=== PATIENT | female | born 1940 | race Asian ===

== ENCOUNTER 2018-09-22 21:15 | Inpatient (IN) | payer MEDICAID ==
--- NOTE | 2018-09-22 21:39 | ED Physician Chart ---
ED Chief Complaint/HPI - Patient Information Date Seen:: 09/22/18 Time Seen:: 21:38 Chief Complaint:: Failure to thrive History of Present Illness:: 77 yo female was brought from [facility] to ER for evaluation of poor oral intake and failure to thrive. Pt refused to eat and had altered mental status for 2 days. Per report, pt had fever for 1 day. Allergies:: Allergies Allergy/AdvReac Type Severity Reaction Status Date / Time No Known Allergies Allergy Verified 09/22/18 21:27 Vitals:: Vital Signs - 8 hr 09/22/18 21:20 Temp 100.5 F HR 116 RR 20 BP 113/82 O2 Sat % 96 ED Review of Systems - Review of Systems General/Constitutional: Fever, Weakness Skin: No bruising Head: No headache Eyes: No pain ENT: No nasal drainage Neck: No neck pain Cardio Vascular: No chest pain Pulmonary: No SOB GI: No nausea, No vomiting Musculoskeletal: No bone or joint pain Hematopoietic: No bruising Neurological: No focal symptoms ED Past Medical History - Past Medical History Past Medical History: HTN, Dyslipidemia (Hyperlipidemia), Other (DYSPHAGIA, AFib ) Social History: Non Smoker, No Alcohol, No Drug Use Family Medical History - Family Member Mother History Unknown: Yes Ethnicity: Non- Hx Family Cancer: No ED Physical Exam - Physical Examination General/Constitutional: Awake Other Gen/Cons comments:: Cachectic Head: Atraumatic Eyes: PERRL Skin: No rash ENMT: External ears, nose nl, Nasal exam nl, Lips, teeth, gums nl Neck: No nuchal rigidity Respiratory: No Wheeze/Rhonchi/Rales Cardio Vascular: RRR, No murmur, gallop, rubs, NL S1 S2 GI: No tenderness/rebounding/guarding Extremities: normal strength in all extremities Neuro/Psych: No focal deficits ED Labs/Radiology/EKG Results - Lab Results Results: Laboratory Last Values WBC 6.6 Th/cmm (4.8-10.8) 09/23/18 04:00 RBC 4.17 Mil/cmm (3.80-5.20) 09/23/18 04:00 Hgb 12.9 gm/dL (12-16) 09/23/18 04:00 Hct 40.6 % (41.0-60) L 09/23/18 04:00 MCV 97.4 fl (81-100) 09/23/18 04:00 MCH 31.0 pg (27.0-31.0) 09/23/18 04:00 MCHC Differential 31.8 pg (28.0-36.0) 09/23/18 04:00 RDW 12.3 % (11.5-20.0) 09/23/18 04:00 Plt Count 167 Th/cmm (150-400) 09/23/18 04:00 MPV 8.8 fl 09/23/18 04:00 Neutrophils % 69.4 % (40.0-80.0) 09/23/18 04:00 Lymphocytes % 19.6 % (20.0-50.0) L 09/23/18 04:00 Monocytes % 10.0 % (2.0-10.0) 09/23/18 04:00 Eosinophils % 0.7 % (0.0-5.0) 09/23/18 04:00 Basophils % 0.3 % (0.0-2.0) 09/23/18 04:00 PT 10.9 SECONDS (9.5-11.5) 09/23/18 04:00 INR 1.05 (0.5-1.4) 09/23/18 04:00 PTT (Actin FS) 28.3 SECONDS (26.0-38.0) 09/23/18 04:00 Sodium 152 mEq/L (136-145) H 09/23/18 04:00 Potassium 3.6 mEq/L (3.5-5.1) 09/23/18 04:00 Chloride 117 mEq/L (98-107) H 09/23/18 04:00 Carbon Dioxide 26.8 mEq/L (21.0-31.0) 09/23/18 04:00 Anion Gap 11.8 (7.0-16.0) 09/23/18 04:00 BUN 23 mg/dL (7-25) 09/23/18 04:00 Creatinine 0.7 mg/dL (0.6-1.2) 09/23/18 04:00 Est GFR ( Amer) TNP 09/23/18 04:00 Est GFR (Non-Af Amer) TNP 09/23/18 04:00 BUN/Creatinine Ratio 32.9 09/23/18 04:00 Glucose 131 mg/dL (70-105) H 09/23/18 04:00 Calcium 8.4 mg/dL (8.6-10.3) L 09/23/18 04:00 Phosphorus 2.5 mg/dL (2.5-5.0) 09/23/18 04:00 Magnesium 2.5 mg/dL (1.9-2.7) 09/23/18 04:00 Total Bilirubin 0.4 mg/dL (0.3-1.0) 09/23/18 04:00 AST 16 U/L (13-39) 09/23/18 04:00 ALT 6 U/L (7-52) L 09/23/18 04:00 Alkaline Phosphatase 42 U/L (34-104) 09/23/18 04:00 Troponin I 0.01 ng/mL (0.01-0.05) 09/22/18 22:03 B-Natriuretic Peptide 88.0 pg/mL (5.0-100.0) 09/22/18 22:03 Total Protein 6.6 gm/dL (6.0-8.3) 09/23/18 04:00 Albumin 3.3 gm/dL (3.7-5.3) L 09/23/18 04:00 Globulin 3.3 gm/dL 09/23/18 04:00 Albumin/Globulin Ratio 1.0 (1.0-1.8) 09/23/18 04:00 TSH 0.42 uIU/ml (0.34-5.60) 09/22/18 22:03 Urine Source CATH 09/22/18 22:51 Urine Color YELLOW 09/22/18 22:51 Urine Clarity HAZY (CLEAR) 09/22/18 22:51 Urine pH 5.5 (4.6 - 8.0) 09/22/18 22:51 Ur Specific [place] >= 1.030 (1.005-1.030) 09/22/18 22:51 Urine Protein TRACE mg/dL (NEGATIVE) 09/22/18 22:51 Urine Glucose (UA) NEGATIVE mg/dL (NEGATIVE) 09/22/18 22:51 Urine Ketones 15 mg/dL (NEGATIVE) H 09/22/18 22:51 Urine Blood MODERATE (NEGATIVE) H 09/22/18 22:51 Urine Nitrate NEGATIVE (NEGATIVE) 09/22/18 22:51 Urine Bilirubin NEGATIVE (NEGATIVE) 09/22/18 22:51 Urine Urobilinogen 0.2 E.U./dL (0.2 - 1.0) 09/22/18 22:51 Ur Leukocyte Esterase NEGATIVE (NEGATIVE) 09/22/18 22:51 Urine RBC 10-25 /hpf (0-5) H 09/22/18 22:51 Urine WBC 2-5 /hpf (0-5) 09/22/18 22:51 Ur Epithelial Cells MODERATE /lpf (FEW) 09/22/18 22:51 Urine Bacteria FEW /hpf (NONE SEEN) 09/22/18 22:51 ED Assessment - Assessment General Assessment: Failure to thrive Dysphagia Hypernatremia Dehydration ED Septic Shock - . Is Septic Shock (SBP<90, OR Lactate>4 mmol\L) present?: No - <6hrs of presentation: Vital Signs: Vital Signs - 8 hr 09/22/18 21:20 Temp 100.5 F HR 116 RR 20 BP 113/82 O2 Sat % 96 ED Reassessment (Disposition) - Reassessment Reassessment Condition:: Unchanged, Improved - Aftercare/Follow up Instructions Notes:: Admit pt under Dr. Balbuena for possible G tube placement - Patient Disposition Discharge/Transfer:: Acute Care w/in this hosp Admitted to:: Telemetry Admitting Medical Physician:: Jovanni Lawrence
[2018-09-22] MEDS ORDERED: guaiFENesin 200 MG/10 ML UDC PO PRN (22:06)
[2018-09-22] MEDS ORDERED: Polyvinyl Alcohol Ophth Soln 15 mL Bottle EACH EYE PRN (22:06)
[2018-09-22] MEDS ORDERED: Magnesium Hydroxide (MOM) 30 mL UDC PO PRN (22:06)
[2018-09-22] MEDS ORDERED: Albuterol Nebulizer 2.5mg/3mL HHN PRN (22:07)
[2018-09-22] MEDS ORDERED: Ipratropium Neb 0.5 mg/2.5 mL UD HHN PRN (22:07)
[2018-09-22 22:15] LABS: % BASOPHILS 0.7 % (0.0-2.0); % EOSINOPHILS 0.6 % (0.0-5.0); % LYMPHOCYTES 17.8 % (20.0-50.0); % MONOCYTES 9.3 % (2.0-10.0); % NEUTROPHILS 71.6 % (40.0-80.0); HEMATOCRIT 42.1 % (41.0-60); HEMOGLOBIN 13.7 gm/dL (12-16); MEAN CELL VOLUME 96.1 fl (81-100); MEAN CORPUSCULAR HEMOGLOBIN 31.3 pg (27.0-31.0); MEAN CORPUSCULAR HGB CONC 32.6 pg (28.0-36.0); MEAN PLATELET VOLUME 8.6 fl; MONOCYTE ABSOLUTE 0.5 Th/cmm (0.3-1.0); PLATELET COUNT 177 Th/cmm (150-400); RED BLOOD COUNT 4.38 Mil/cmm (3.80-5.20); RED CELL DISTRIBUTION WIDTH 12.5 % (11.5-20.0); WHITE BLOOD COUNT 5.5 Th/cmm (4.8-10.8)
[2018-09-22] MEDS ORDERED: D5-0.9%NS 1,000 ML IV SCH (22:15)
[2018-09-22 22:26] LABS: ALB/GLOB RATIO 0.9 (1.0-1.8); ALBUMIN 3.4 gm/dL (3.7-5.3); ALKALINE PHOSPHATASE 46 U/L (34-104); ANION GAP 13.7 (7.0-16.0); BILIRUBIN,TOTAL 0.5 mg/dL (0.3-1.0); BUN - UREA NITROGEN 24 mg/dL (7-25); CALCIUM SERUM 8.7 mg/dL (8.6-10.3); CARBON DIOXIDE 24.9 mEq/L (21.0-31.0); CHLORIDE 113 mEq/L (98-107); CREATININE - SERUM 0.7 mg/dL (0.6-1.2); GLUCOSE 109 mg/dL (70-105); POTASSIUM SERUM 3.6 mEq/L (3.5-5.1); SGOT 15 U/L (13-39); SGPT/ALT 6 U/L (7-52); SODIUM SERUM 148 mEq/L (136-145)
[2018-09-22 22:56] LABS: URINE SOURCE CATH
[2018-09-22 23:03] LABS: URINE BILIRUBIN NEGATIVE (NEGATIVE); URINE BLOOD MODERATE (NEGATIVE); URINE GLUCOSE (UA) NEGATIVE (NEGATIVE); URINE KETONE 15 mg/dL (NEGATIVE); URINE LEUKOCYTE ESTERASE NEGATIVE (NEGATIVE); URINE MICROSCOPIC INDICATED? YES; URINE NITRATE NEGATIVE (NEGATIVE); URINE PH 5.5 (4.6 - 8.0); URINE PROTEIN TRACE mg/dL (NEGATIVE); URINE UROBILINOGEN 0.2 E.U./dL (0.2 - 1.0)
[2018-09-22 23:04] LABS: URINE CLARITY HAZY (CLEAR); URINE COLOR YELLOW
[2018-09-22 23:09] LABS: URINE EPITHELIAL CELLS MODERATE /lpf (FEW)
[2018-09-22 23:10] LABS: URINE BACTERIA FEW /hpf (NONE SEEN)
[2018-09-22] MEDS ORDERED: Diltiazem 5 mg/mL 25mL Vial IV PRN (23:48)
[2018-09-23] MEDS ORDERED: Diltiazem 5 mg/mL 5mL Vial IVP ONE ×2 (00:17→10:25)
[2018-09-23 01:28] VITALS: BP 133/68
[2018-09-23 04:17] LABS: MONOCYTE ABSOLUTE 0.7 Th/cmm (0.3-1.0); RED CELL DISTRIBUTION WIDTH 12.3 % (11.5-20.0); WHITE BLOOD COUNT 6.6 Th/cmm (4.8-10.8)
[2018-09-23 04:41] LABS: % BASOPHILS 0.3 % (0.0-2.0); % EOSINOPHILS 0.7 % (0.0-5.0); % LYMPHOCYTES 19.6 % (20.0-50.0); % NEUTROPHILS 69.4 % (40.0-80.0); HEMATOCRIT 40.6 % (41.0-60); HEMOGLOBIN 12.9 gm/dL (12-16); LYMPHOCYTE ABSOLUTE 1.3 Th/cmm (1.5-3.0); MEAN CELL VOLUME 97.4 fl (81-100); MEAN CORPUSCULAR HGB CONC 31.8 pg (28.0-36.0); MEAN PLATELET VOLUME 8.8 fl; NEUTROPHILE ABSOLUTE 4.6 Th/cmm (1.8-8.0); PLATELET COUNT 167 Th/cmm (150-400); RED BLOOD COUNT 4.17 Mil/cmm (3.80-5.20)
[2018-09-23 04:59] LABS: INR 1.05 (0.5-1.4); PROTHROMBIN TIME (TEST) 10.9 SECONDS (9.5-11.5)
[2018-09-23 05:11] LABS: ALBUMIN 3.3 gm/dL (3.7-5.3); ALKALINE PHOSPHATASE 42 U/L (34-104); ANION GAP 11.8 (7.0-16.0); BILIRUBIN,TOTAL 0.4 mg/dL (0.3-1.0); BUN - UREA NITROGEN 23 mg/dL (7-25); CALCIUM SERUM 8.4 mg/dL (8.6-10.3); CARBON DIOXIDE 26.8 mEq/L (21.0-31.0); CHLORIDE 117 mEq/L (98-107); CREATININE - SERUM 0.7 mg/dL (0.6-1.2); GLUCOSE 131 mg/dL (70-105); MAGNESIUM 2.5 mg/dL (1.9-2.7); PHOSPHOROUS 2.5 mg/dL (2.5-5.0); POTASSIUM SERUM 3.6 mEq/L (3.5-5.1); SGOT 16 U/L (13-39); SGPT/ALT 6 U/L (7-52); SODIUM SERUM 152 mEq/L (136-145); TOTAL PROTEIN,SERUM 6.6 gm/dL (6.0-8.3)
--- NOTE | 2018-09-23 08:19 | Diagnostic Imaging Report ---
Chest x-ray single view History: Shortness of breath Comparison: None The heart size is normal. No focal pulmonary parenchymal processes. No hilar or mediastinal abnormalities. Impression: No acute abnormalities
--- NOTE | 2018-09-23 08:33 | Diagnostic Imaging Report ---
Exam: Chest x-ray HISTORY shortness of breath COMPARISON: 2018 Findings: Frontal examination of chest reviewed demonstrates COPD changes. No active pulmonic infiltrates or effusions are noted. Mediastinal structures midline, bony thorax is intact IMPRESSION: COPD changes no acute disease.
[2018-09-23] MEDS ORDERED: Non-Formulary Item 1 EA (Nutritional Supplement [Resource 2.0] 60 ML) PO SCH (09:00)
[2018-09-23] MEDS ORDERED: NUTRITIONAL SUPPLEMENT PO SCH (09:00)
--- NOTE | 2018-09-23 09:43 | Diagnostic Imaging Report ---
CHEST X-RAY: AP view INDICATION: NG tube placement COMPARISON: 09/23/2018 at 7:29 AM FINDINGS: NG tube is in place with tip in the stomach. There is no focal consolidation or pleural effusions The heart is normal in size. IMPRESSION: NG tube within the stomach No focal consolidation identified.
[2018-09-23] MEDS: Multivitamin Tab PO SCH (10:10)
[2018-09-23] MEDS ORDERED: Diltiazem 5 mg/mL 5mL Vial IVP PRN (10:45)
--- NOTE | 2018-09-23 14:11 | Internal Medicine Prog Note ---
Internal Medicine Subjective - Subjective Service Date: 09/23/18 ([id number] [facility]) Internal Medicine Objective - Results Result Diagrams: 09/23/18 04:00 09/23/18 04:00 Recent Labs: Laboratory Last Values WBC 6.6 Th/cmm (4.8-10.8) 09/23/18 04:00 RBC 4.17 Mil/cmm (3.80-5.20) 09/23/18 04:00 Hgb 12.9 gm/dL (12-16) 09/23/18 04:00 Hct 40.6 % (41.0-60) L 09/23/18 04:00 MCV 97.4 fl (81-100) 09/23/18 04:00 MCH 31.0 pg (27.0-31.0) 09/23/18 04:00 MCHC Differential 31.8 pg (28.0-36.0) 09/23/18 04:00 RDW 12.3 % (11.5-20.0) 09/23/18 04:00 Plt Count 167 Th/cmm (150-400) 09/23/18 04:00 MPV 8.8 fl 09/23/18 04:00 Neutrophils % 69.4 % (40.0-80.0) 09/23/18 04:00 Lymphocytes % 19.6 % (20.0-50.0) L 09/23/18 04:00 Monocytes % 10.0 % (2.0-10.0) 09/23/18 04:00 Eosinophils % 0.7 % (0.0-5.0) 09/23/18 04:00 Basophils % 0.3 % (0.0-2.0) 09/23/18 04:00 PT 10.9 SECONDS (9.5-11.5) 09/23/18 04:00 INR 1.05 (0.5-1.4) 09/23/18 04:00 PTT (Actin FS) 28.3 SECONDS (26.0-38.0) 09/23/18 04:00 Sodium 152 mEq/L (136-145) H 09/23/18 04:00 Potassium 3.6 mEq/L (3.5-5.1) 09/23/18 04:00 Chloride 117 mEq/L (98-107) H 09/23/18 04:00 Carbon Dioxide 26.8 mEq/L (21.0-31.0) 09/23/18 04:00 Anion Gap 11.8 (7.0-16.0) 09/23/18 04:00 BUN 23 mg/dL (7-25) 09/23/18 04:00 Creatinine 0.7 mg/dL (0.6-1.2) 09/23/18 04:00 Est GFR ( Amer) TNP 09/23/18 04:00 Est GFR (Non-Af Amer) TNP 09/23/18 04:00 BUN/Creatinine Ratio 32.9 09/23/18 04:00 Glucose 131 mg/dL (70-105) H 09/23/18 04:00 Calcium 8.4 mg/dL (8.6-10.3) L 09/23/18 04:00 Phosphorus 2.5 mg/dL (2.5-5.0) 09/23/18 04:00 Magnesium 2.5 mg/dL (1.9-2.7) 09/23/18 04:00 Total Bilirubin 0.4 mg/dL (0.3-1.0) 09/23/18 04:00 AST 16 U/L (13-39) 09/23/18 04:00 ALT 6 U/L (7-52) L 09/23/18 04:00 Alkaline Phosphatase 42 U/L (34-104) 09/23/18 04:00 Troponin I 0.01 ng/mL (0.01-0.05) 09/22/18 22:03 B-Natriuretic Peptide 88.0 pg/mL (5.0-100.0) 09/22/18 22:03 Total Protein 6.6 gm/dL (6.0-8.3) 09/23/18 04:00 Albumin 3.3 gm/dL (3.7-5.3) L 09/23/18 04:00 Globulin 3.3 gm/dL 09/23/18 04:00 Albumin/Globulin Ratio 1.0 (1.0-1.8) 09/23/18 04:00 TSH 0.42 uIU/ml (0.34-5.60) 09/22/18 22:03 Urine Source CATH 09/22/18 22:51 Urine Color YELLOW 09/22/18 22:51 Urine Clarity HAZY (CLEAR) 09/22/18 22:51 Urine pH 5.5 (4.6 - 8.0) 09/22/18 22:51 Ur Specific [place] >= 1.030 (1.005-1.030) 09/22/18 22:51 Urine Protein TRACE mg/dL (NEGATIVE) 09/22/18 22:51 Urine Glucose (UA) NEGATIVE mg/dL (NEGATIVE) 09/22/18 22:51 Urine Ketones 15 mg/dL (NEGATIVE) H 09/22/18 22:51 Urine Blood MODERATE (NEGATIVE) H 09/22/18 22:51 Urine Nitrate NEGATIVE (NEGATIVE) 09/22/18 22:51 Urine Bilirubin NEGATIVE (NEGATIVE) 09/22/18 22:51 Urine Urobilinogen 0.2 E.U./dL (0.2 - 1.0) 09/22/18 22:51 Ur Leukocyte Esterase NEGATIVE (NEGATIVE) 09/22/18 22:51 Urine RBC 10-25 /hpf (0-5) H 09/22/18 22:51 Urine WBC 2-5 /hpf (0-5) 09/22/18 22:51 Ur Epithelial Cells MODERATE /lpf (FEW) 09/22/18 22:51 Urine Bacteria FEW /hpf (NONE SEEN) 09/22/18 22:51 - Physical Exam Vitals and I&O: Vital Signs Temp 98.2 F 09/23/18 08:00 Pulse 75 09/23/18 11:40 Resp 25 09/23/18 10:00 BP 113/62 09/23/18 10:10 Pulse Ox 94 09/23/18 10:00 Intake & Output 09/22/18 09/23/18 09/23/18 18:59 06:59 18:59 Intake Total 586.667 Balance 586.667 Weight (lbs) 83 lb Intake: Intake, IV Amount 586.667 D5-0.9%Ns 1,000 ml @ 80 586.667 mls/hr IV .[id number] [facility] Rx #:[id number] Oral 0 Other: # Voids 1 # Bowel Movements 0 Weight Source Bedscale Active Medications: Current Medications Acetaminophen (Tylenol) 650 mg PO Q4H PRN PRN Reason: Pain Or Fever above 101 Stop: 11/21/18 22:06 Albuterol Sulfate (Albuterol 2.5mg/3ml Neb Ud) 2.5 mg HHN Q2HRT PRN PRN Reason: Shortness of Breath or Wheeze Stop: 11/21/18 22:06 Last Admin: 09/23/18 00:12 Dose: 2.5 mg Artificial Tears (Artificial Tears Ophth Soln) 1 drop EACH EYE Q6HR PRN PRN Reason: Dry Eye Stop: 10/23/18 22:05 Last Admin: 09/23/18 10:11 Dose: 1 drop Diltiazem HCl (Cardizem) 10 mg IVP Q4HR PRN PRN Reason: Tachycardia HR Above 120 Stop: 11/22/18 00:00 Last Admin: 09/23/18 10:40 Dose: 10 mg Docusate Sodium (Colace) 100 mg PO BID [facility] Stop: 11/22/18 08:59 Last Admin: 09/23/18 10:10 Dose: 100 mg Donepezil HCl (Aricept) 5 mg PO HS [facility] Stop: 11/22/18 20:59 Guaifenesin (Robitussin) 200 mg PO Q6HR PRN PRN Reason: Cough Stop: 11/21/18 22:05 Dextrose (D5w) 1,000 mls @ 75 mls/hr IV .[id number] [facility] Stop: 11/22/18 12:30 Ipratropium [place] (Atrovent Neb 0.5mg/2.5ml) 0.5 mg HHN Q2HRT PRN PRN Reason: Shortness of Breath or Wheeze Stop: 11/21/18 22:06 Magnesium Hydroxide (Milk Of Magnesia) 30 ml PO HS PRN PRN Reason: Constipation Stop: 11/21/18 22:05 Metoprolol Succinate (Toprol Xl) 25 mg PO BID [facility] Stop: 11/22/18 08:59 Last Admin: 09/23/18 10:10 Dose: 25 mg Multivitamins/Vitamin C (Theragran) 1 tab PO DAILY [facility] Stop: 11/22/18 08:59 Last Admin: 09/23/18 10:10 Dose: 1 tab Ondansetron HCl (Zofran) 4 mg IV Q8H PRN PRN Reason: Nausea / Vomiting Stop: 11/21/18 22:06
--- NOTE | 2018-09-23 16:28 | History & Physical ---
ADMIT DATE: 09/23/2018 CHIEF COMPLAINT: Failure to thrive. HISTORY OF PRESENT ILLNESS: This is a 77-year-old female who is a [facility] resident, admitted to the ICU unit due to 2-day history of altered mental status associated with poor oral intake. The patient did have an episode of a fever at the [facility]. PAST MEDICAL HISTORY: Hypertension, dyslipidemia, dysphagia, and history of atrial fibrillation. SOCIAL HISTORY: The patient is a [facility] resident requiring 24-hour nursing care. FAMILY HISTORY: Noncontributory. REVIEW OF SYSTEMS: Unable to obtain due to patient's mental status. PHYSICAL EXAMINATION: GENERAL: Elderly female, awake, not interactive. NG tube in place, in no apparent distress. VITAL SIGNS: Temperature 98.2, heart rate 120, blood pressure 112/81, respirations 27, O2 of 97%. HEENT: Head normocephalic, atraumatic. NECK: Supple. No mass. LUNGS: Clear bilaterally. HEART: Regular rhythm. ABDOMEN: Soft, nontender, nondistended. EXTREMITIES: No edema noted. LABORATORY DATA: WBC 6.6, H and H of 12.9 and 40.6, platelets 167. Sodium 152, potassium 3.6, chloride 117, BUN 22, creatinine 0.7. The patient had a urinalysis done positive for UTI. DIAGNOSTICS: The patient had a chest x-ray done and impression is no focal consolidation identified. ASSESSMENT: Failure to thrive, dysphagia, atrial fibrillation with rapid ventricular response, hypertension, hyperlipidemia, hypernatremia secondary to acute dehydration, acute urinary tract infection, moderate protein calorie malnutrition. PLAN: The patient to be admitted to the ICU unit. We will give IV fluids for hydration. NG tube for nutritional support. We will get GI consultation for possible PEG. Get Cardiology consultation as well. We will get followup labs. We will send urine for culture. We will give the patient empiric IV antibiotics. We will continue to monitor this patient. JOB# [id number]
[2018-09-23] MEDS: Levofloxacin 500mg/100mL 500 MG/100 ML BAG IV SCH (17:02)
[2018-09-23] MEDS: Dextrose 5% 1,000 ML IV SCH (17:02)
[2018-09-23] MEDS: Diltiazem 30 mg Tab PO SCH (17:03)
[2018-09-24] MEDS: Diltiazem 30 mg Tab PO SCH ×4 (00:55→21:03)
--- NOTE | 2018-09-24 04:50 | Consultation ---
DATE OF CONSULTATION: 09/23/2018 INPATIENT GI CONSULTATION CONSULTING PHYSICIAN: Dr. Lawrence. REASON FOR CONSULTATION: Failure to thrive, G-tube placement. HISTORY OF PRESENT ILLNESS: The patient is a 77-year-old female with history of previous G-tube placement, admitted to the hospital with lack of appetite, failure to thrive type symptoms from home. The patient is unable to give any history at the current time and the ER charting is essentially blank and thus the history is extremely limited. Apparently, the patient's daughter is coming in today and can provide some collateral information, but from what I have been told the patient has not been eating and has no appetite for the past week. She has a scar from an old G-tube and that she likely has had symptoms such as this before, but possibly has regained function at that point. A quick analysis has been done with urinalysis and chest x-ray, which failed to show any acute infection. At the current time, the patient is responsive to painful stimuli, but otherwise is noncommunicative. No sign of any GI bleed. PAST MEDICAL HISTORY: Unknown. PAST SURGICAL HISTORY: Significant for previous G-tube placement, otherwise unknown. FAMILY HISTORY: Noncontributory. SOCIAL HISTORY: Unknown. ALLERGIES: There are no known drug allergies. REVIEW OF SYSTEMS: Not possible given the patient is unable to participate in the interview. CURRENT MEDICATIONS: Include Tylenol, albuterol, artificial tears, IV fluid, Cardizem, Colace, Aricept, Robitussin, Atrovent, milk of magnesia, metoprolol, Zofran. PHYSICAL EXAMINATION: VITAL SIGNS: Blood pressure is 94/60, pulse 115 beats per minute, temperature is not recorded, oxygenation 98%. GENERAL: The patient is lying on her back. She is alert and oriented x 0, does not appear to be in acute distress. HEAD, EYES, EARS, NOSE AND THROAT: Normocephalic, atraumatic appearing head. Pupils are equal and reactive to light. Extraocular muscles are intact. She does not track. Dry mucous membranes. NECK: Supple. No JVD or thyromegaly. CHEST: Crackles at the bases. CARDIOVASCULAR: S1, S2 are present, tachycardic. ABDOMEN: Soft. There is a scar from the previous G-tube site. No guarding or rebound. EXTREMITIES: Venous stasis changes bilaterally. Pulses not present. SKIN: There is no obvious jaundice. LABORATORY AND DIAGNOSTIC DATA: White blood cell count of 6.6, hemoglobin 12.9, platelet count 167. INR is 1.05. Sodium 152, BUN 23, creatinine 0.7, AST 16, and ALT 6. Chest x-ray was performed in the ER, it shows no acute abnormality. IMPRESSION: This is a 77-year-old female with history of dysphagia in the past, otherwise unknown medical history, admitted to the hospital for lack of appetite and failure to thrive. 1. Failure to thrive, anorexia. 2. Hypernatremia. DISCUSSION: At this point, the history is extremely limited other than the fact that the patient has not been eating for the past week. She does appear to be dehydrated and thus she likely has not been taking in much hydration via oral route. She has needed a G-tube in the past as evidenced by a scar in her abdomen and thus she may be suffering a recurrent episode of anorexia. For the time being, we can place an NG tube for medications, tube feeding and water and we can ask the patient's daughter if she would like another gastrostomy tube to be placed endoscopically. RECOMMENDATIONS: 1. Insert NG tube and start tube feeds and can use this also for medications and water flushes. 2. If the patient's daughter would like another G-tube placed, we can do this maybe tomorrow or the next day. 3. She likely needs IV fluid given the hypernatremia and we will leave this management as per primary. 4. Try to obtain more collateral information about the patient's past medical history as the ER documentation is essentially useless. Thank you for allowing me to participate in this patient's care. Please call me with any further questions. JOB# [id number]
[2018-09-24 06:19] LABS: % BASOPHILS 0.2 % (0.0-2.0); % EOSINOPHILS 2.5 % (0.0-5.0); % MONOCYTES 8.5 % (2.0-10.0); % NEUTROPHILS 58.8 % (40.0-80.0); EOSINOPHILE ABSOLUTE 0.1 Th/cmm (0.1-0.4); HEMOGLOBIN 12.2 gm/dL (12-16); LYMPHOCYTE ABSOLUTE 1.7 Th/cmm (1.5-3.0); MEAN CELL VOLUME 96.2 fl (81-100); MEAN CORPUSCULAR HEMOGLOBIN 31.9 pg (27.0-31.0); MEAN CORPUSCULAR HGB CONC 33.1 pg (28.0-36.0); MEAN PLATELET VOLUME 8.1 fl; MONOCYTE ABSOLUTE 0.5 Th/cmm (0.3-1.0); NEUTROPHILE ABSOLUTE 3.4 Th/cmm (1.8-8.0); PLATELET COUNT 143 Th/cmm (150-400); RED BLOOD COUNT 3.84 Mil/cmm (3.80-5.20); RED CELL DISTRIBUTION WIDTH 11.9 % (11.5-20.0); WHITE BLOOD COUNT 5.7 Th/cmm (4.8-10.8)
[2018-09-24 07:59] LABS: INR 1.14 (0.5-1.4); PROTHROMBIN TIME (TEST) 11.8 SECONDS (9.5-11.5)
[2018-09-24] MEDS ORDERED: ceFAZolin 1 GM in Sodium Chloride 0.9% 50 ML IV ONE (08:00)
--- NOTE | 2018-09-24 08:03 | Consultation ---
DATE OF CONSULTATION: 09/23/2018 PATIENT OF: Dr. Lawrence. HISTORY OF PRESENT ILLNESS: This is a 77-year-old female patient. Due to failure to thrive, patient stopped eating. At this time, the patient was brought to the Emergency Room for possible PEG placement. The patient was found to have atrial fibrillation with uncontrolled ventricular response and hence, the patient is admitted to ICU. Cardiology consult is requested. PAST MEDICAL HISTORY: Atrial fibrillation, dysphagia, hypertension, hyperlipidemia, osteoporosis, protein-calorie malnutrition. FAMILY HISTORY: Unremarkable. SOCIAL HISTORY: No history of smoking, alcohol abuse. ALLERGIES: No known allergies. PHYSICAL EXAMINATION: VITAL SIGNS: Blood pressure 130/80, pulse 120, irregular, respirations 28. HEAD: Normocephalic. No lumps or bumps. EYES: Pupils equal, reactive to light. Fundi show AV nicking, sclerae white, conjunctivae pink. NECK: Carotid 2+. Normal upstroke. JVD flat. Thyroid not palpable. Lymph nodes not palpable. CHEST: Shows increased AP diameter. No kyphosis, scoliosis. LUNGS: Bilateral bronchovesicular breath sounds. Bilateral wheezing, rhonchi, prolonged expiration. HEART: PMI fifth intercostal space with lateral to midclavicular line. S1, S2, S3, S4. S1 irregular. Systolic murmur. ABDOMEN: Soft. Liver, spleen not palpable. No organomegaly. Bowel sounds active. NEUROLOGIC: Unremarkable. EXTREMITIES: Peripheral pulses 2+. No pedal edema. CLINICAL IMPRESSION: 1. Atrial fibrillation with uncontrolled ventricular response. 2. Dysphagia. 3. Protein-calorie malnutrition. 4. Hypertension. 5. Hyperlipidemia. 6. Osteoporosis. PLAN: The patient to be admitted, control the heart rate. Following this, possible patient to have PEG placement. We will also get an echocardiogram. JOB# [id number]
[2018-09-24 08:33] LABS: ALBUMIN 2.8 gm/dL (3.7-5.3); ALKALINE PHOSPHATASE 38 U/L (34-104); ANION GAP 9.7 (7.0-16.0); BILIRUBIN,TOTAL 0.5 mg/dL (0.3-1.0); BUN - UREA NITROGEN 18 mg/dL (7-25); CALCIUM SERUM 7.9 mg/dL (8.6-10.3); CARBON DIOXIDE 25.1 mEq/L (21.0-31.0); CHLORIDE 109 mEq/L (98-107); CREATININE - SERUM 0.5 mg/dL (0.6-1.2); GLUCOSE 102 mg/dL (70-105); MAGNESIUM 2.3 mg/dL (1.9-2.7); SGOT 18 U/L (13-39); SGPT/ALT 6 U/L (7-52); SODIUM SERUM 141 mEq/L (136-145); TOTAL PROTEIN,SERUM 5.6 gm/dL (6.0-8.3)
[2018-09-24 08:47] LABS: POTASSIUM SERUM 2.8 mEq/L (3.5-5.1)
[2018-09-24] MEDS: KCL 20mEq/100mL Premix 20 MEQ/100 ML PIGGYBACK IV SCH ×2 (11:58→13:38)
[2018-09-24] MEDS: Dextrose 5% 1,000 ML IV SCH (12:02)
--- NOTE | 2018-09-24 12:21 | General Progress Note ---
Subjective - Review of Systems Service Date: 09/24/18 Subjective: Patient has slight shortness of breath no palpitations ejection transferred to PHILLY Objective - Results Result Diagrams: 09/24/18 06:00 09/24/18 06:00 Recent Labs: Laboratory Last Values WBC 5.7 Th/cmm (4.8-10.8) 09/24/18 06:00 RBC 3.84 Mil/cmm (3.80-5.20) 09/24/18 06:00 Hgb 12.2 gm/dL (12-16) 09/24/18 06:00 Hct 37.0 % (41.0-60) L 09/24/18 06:00 MCV 96.2 fl (81-100) 09/24/18 06:00 MCH 31.9 pg (27.0-31.0) H 09/24/18 06:00 MCHC Differential 33.1 pg (28.0-36.0) 09/24/18 06:00 RDW 11.9 % (11.5-20.0) 09/24/18 06:00 Plt Count 143 Th/cmm (150-400) L 09/24/18 06:00 MPV 8.1 fl 09/24/18 06:00 Neutrophils % 58.8 % (40.0-80.0) 09/24/18 06:00 Lymphocytes % 30.0 % (20.0-50.0) 09/24/18 06:00 Monocytes % 8.5 % (2.0-10.0) 09/24/18 06:00 Eosinophils % 2.5 % (0.0-5.0) 09/24/18 06:00 Basophils % 0.2 % (0.0-2.0) 09/24/18 06:00 PT 11.8 SECONDS (9.5-11.5) H 09/24/18 06:00 INR 1.14 (0.5-1.4) 09/24/18 06:00 PTT (Actin FS) 28.3 SECONDS (26.0-38.0) 09/23/18 04:00 Sodium 141 mEq/L (136-145) 09/24/18 06:00 Potassium 2.8 mEq/L (3.5-5.1) L* 09/24/18 06:00 Chloride 109 mEq/L (98-107) H 09/24/18 06:00 Carbon Dioxide 25.1 mEq/L (21.0-31.0) 09/24/18 06:00 Anion Gap 9.7 (7.0-16.0) 09/24/18 06:00 BUN 18 mg/dL (7-25) 09/24/18 06:00 Creatinine 0.5 mg/dL (0.6-1.2) L 09/24/18 06:00 Est GFR ( Amer) TNP 09/24/18 06:00 Est GFR (Non-Af Amer) TNP 09/24/18 06:00 BUN/Creatinine Ratio 36.0 09/24/18 06:00 Glucose 102 mg/dL (70-105) 09/24/18 06:00 POC Glucose 96 MG/DL (70 - 105) 09/24/18 07:01 Calcium 7.9 mg/dL (8.6-10.3) L 09/24/18 06:00 Phosphorus 2.5 mg/dL (2.5-5.0) 09/23/18 04:00 Magnesium 2.3 mg/dL (1.9-2.7) 09/24/18 06:00 Total Bilirubin 0.5 mg/dL (0.3-1.0) 09/24/18 06:00 AST 18 U/L (13-39) 09/24/18 06:00 ALT 6 U/L (7-52) L 09/24/18 06:00 Alkaline Phosphatase 38 U/L (34-104) 09/24/18 06:00 Troponin I 0.01 ng/mL (0.01-0.05) 09/22/18 22:03 B-Natriuretic Peptide 52.0 pg/mL (5.0-100.0) 09/24/18 06:00 Total Protein 5.6 gm/dL (6.0-8.3) L 09/24/18 06:00 Albumin 2.8 gm/dL (3.7-5.3) L 09/24/18 06:00 Globulin 2.8 gm/dL 09/24/18 06:00 Albumin/Globulin Ratio 1.0 (1.0-1.8) 09/24/18 06:00 TSH 0.42 uIU/ml (0.34-5.60) 09/22/18 22:03 Urine Source CATH 09/22/18 22:51 Urine Color YELLOW 09/22/18 22:51 Urine Clarity HAZY (CLEAR) 09/22/18 22:51 Urine pH 5.5 (4.6 - 8.0) 09/22/18 22:51 Ur Specific [place] >= 1.030 (1.005-1.030) 09/22/18 22:51 Urine Protein TRACE mg/dL (NEGATIVE) 09/22/18 22:51 Urine Glucose (UA) NEGATIVE mg/dL (NEGATIVE) 09/22/18 22:51 Urine Ketones 15 mg/dL (NEGATIVE) H 09/22/18 22:51 Urine Blood MODERATE (NEGATIVE) H 09/22/18 22:51 Urine Nitrate NEGATIVE (NEGATIVE) 09/22/18 22:51 Urine Bilirubin NEGATIVE (NEGATIVE) 09/22/18 22:51 Urine Urobilinogen 0.2 E.U./dL (0.2 - 1.0) 09/22/18 22:51 Ur Leukocyte Esterase NEGATIVE (NEGATIVE) 09/22/18 22:51 Urine RBC 10-25 /hpf (0-5) H 09/22/18 22:51 Urine WBC 2-5 /hpf (0-5) 09/22/18 22:51 Ur Epithelial Cells MODERATE /lpf (FEW) 09/22/18 22:51 Urine Bacteria FEW /hpf (NONE SEEN) 09/22/18 22:51 - Physical Exam Vitals and I&O: Vital Signs Temp 96.8 F 09/24/18 12:01 Pulse 105 09/24/18 12:01 Resp 18 09/24/18 12:01 BP 101/77 09/24/18 12:01 Pulse Ox 98 09/24/18 12:01 Intake & Output 09/23/18 09/24/18 09/24/18 18:59 06:59 18:59 Intake Total 540 1245.0 50 Balance 540 1245.0 50 Weight (lbs) 37.648 kg 37.648 kg Intake: Intake, IV Amount 1000.0 50 Dextrose 5% 1,000 ml @ 75 1000.0 mls/hr IV .[id number] [facility] Rx#:[id number] ceFAZolin 1 gm In Sodium 50 Chloride 0.9% 50 ml @ 100 mls/hr IV X1 ONE Rx#: [id number] Oral 0 Tube Feeding 140 245 Other 400 Other: # Voids 2 2 # Bowel Movements 1 1 Stool Characteristics Liquid Brown Weight Source Bedscale Bedscale Active Medications: Current Medications Acetaminophen (Tylenol) 650 mg PO Q4H PRN PRN Reason: Pain Or Fever above 101 Stop: 11/21/18 22:06 Last Admin: 09/23/18 17:08 Dose: 650 mg Albuterol Sulfate (Albuterol 2.5mg/3ml Neb Ud) 2.5 mg HHN Q2HRT PRN PRN Reason: Shortness of Breath or Wheeze Stop: 11/21/18 22:06 Last Admin: 09/23/18 00:12 Dose: 2.5 mg Artificial Tears (Artificial Tears Ophth Soln) 1 drop EACH EYE Q6HR PRN PRN Reason: Dry Eye Stop: 10/23/18 22:05 Last Admin: 09/23/18 10:11 Dose: 1 drop Diltiazem HCl (Cardizem) 10 mg IVP Q4HR PRN PRN Reason: Tachycardia HR Above 120 Stop: 11/22/18 00:00 Last Admin: 09/23/18 10:40 Dose: 10 mg Diltiazem HCl (Cardizem) 60 mg PO Q6HR [facility] Stop: 11/22/18 17:59 Last Admin: 09/24/18 06:01 Dose: Not Given Docusate Sodium (Colace) 100 mg PO BID [facility] Stop: 11/22/18 08:59 Last Admin: 09/24/18 09:53 Dose: Not Given Donepezil HCl (Aricept) 5 mg PO HS [facility] Stop: 11/22/18 20:59 Last Admin: 09/23/18 21:23 Dose: 5 mg Guaifenesin (Robitussin) 200 mg PO Q6HR PRN PRN Reason: Cough Stop: 11/21/18 22:05 Dextrose (D5w) 1,000 mls @ 75 mls/hr IV .[id number] [facility] Stop: 11/22/18 12:30 Last Admin: 09/24/18 12:02 Dose: 75 mls/hr Levofloxacin (Levaquin Pb) 500 mg in 100 mls @ 100 mls/hr IV Q24HR [facility] Stop: 11/22/18 14:59 Last Admin: 09/23/18 17:02 Dose: 100 mls/hr Potassium Chloride (Potassium Chloride) 20 meq in 100 mls @ 50 mls/hr IV Q2H [facility] Stop: 09/24/18 15:14 Last Admin: 09/24/18 11:58 Dose: 50 mls/hr Ipratropium [place] (Atrovent Neb 0.5mg/2.5ml) 0.5 mg HHN Q2HRT PRN PRN Reason: Shortness of Breath or Wheeze Stop: 11/21/18 22:06 Magnesium Hydroxide (Milk Of Magnesia) 30 ml PO HS PRN PRN Reason: Constipation Stop: 11/21/18 22:05 Metoprolol Succinate (Toprol Xl) 25 mg PO BID [facility] Stop: 11/22/18 08:59 Last Admin: 09/23/18 17:03 Dose: Not Given Multivitamins/Vitamin C (Theragran) 1 tab PO DAILY [facility] Stop: 11/22/18 08:59 Last Admin: 09/23/18 10:10 Dose: 1 tab Ondansetron HCl (Zofran) 4 mg IV Q8H PRN PRN Reason: Nausea / Vomiting Stop: 11/21/18 22:06 General: Alert, Mild distress HEENT: Mucous membr. moist/pink Neck: Supple, JVD (flat), +2 carotid pulse wo bruit Cardiovascular: Systolic murmurs, Other (atrial fibrillation) Abdomen: Bowel sounds, Soft Neurological: Normal speech, Normal tone, Cranial nerves 3-12 NL, Reflexes 2+ Assessment/Plan - Assessment Assessment: Atrial fibrillation with rapid ventricular response Dysphagia protein calorie malnutrition Hypertension Hyperlipidemia Osteoporosis GT (insertion - Plan Plan: Continue present management control atrial fibrillation hypertension and nutrition Patient started medication through the G-tube Nutritional Asmnt/Malnutr-PDOC - Dietary Evaluation Malnutrition Findings (Please click <Entered> for more info): Nutritional Asmnt/Malnutrition Start: 09/23/18 11: 10 Text: Status: Complete Freq: Protocol: Document 09/23/18 14:24 LCHENG (Rec: 09/23/18 14:38 [email or web address] [email or web address]) Nutritional Asmnt/Malnutrition Patient General Information Nutritional Screening High Risk Consult Diagnosis FTT, afib w/RVR Pertinent Medical Hx/Surgical Hx HTN, dyslipidemia, dysphagia, afib Subjective Information Consult received for GT feeding. Pt had NG tube inserted today and GI doctor ordered to start TF. Current Diet Order/ Nutrition Support NPO Pertinent Medications D5W, colace, lasix, levaquin, theragran Pertinent Labs 09/23 Na 152, Cl 117, Glucose 131, Ca 8.4, Alb 3.3 09/22 Na 148, Cl 113, Glucose 109, Alb 3.4 Nutritional Hx/Data Height 1.52 m Height (Calculated Centimeters) 152.4 Current Weight (lbs) 37.648 kg Weight (Calculated Kilograms) 37.6 Weight (Calculated Grams) 99227.2 [place] Body Weight 100 Body Mass Index (BMI) 16.2 Weight Status Underweight GI Symptoms GI Symptoms None Last BM none Difficult in: None Skin Integrity/Comment: open wound to coccyx and right buttock Estimated Nutritional Goals Calories/Kcals/Kg 30-35 based on IBW Kcals Calculated 8344-1023 Protein g/k.2-1.4 Protein Calculated 54-63 Fluid: ml 1350-1575ml (1ml/kcal) Nutritional Problem 1. Problem Problem increased nutrition needs Etiology increased metabolic demand for wound healing and underweight Signs/Symptoms: open wound, BMI 16.2 Intervention/Recommendation Comments 1. Recommend to initate TF with Jevity 1.2 at 20ml/hr contiuous, increased by 10ml/ hr q6hr to achieve goal rate of 45ml/hr continuous. It provides 1296kcal, 60g protein , 871ml free water, meeting 100% of nutritional needs. JIHAN Perez notified. 2. Add Amor BID via NG tube for wound healing 3. Monitor TF rate, tolerance, wt, skin integrity and labs 4. F/U as high risk in 2-3 days Expected Outcomes/Goals Expected Outcomes/Goals 1. Pt to meet at least 90% of nutritional needs via nutrition support with tolerance 2. Wt stability, skin integrity to improve, labs to approach WNL.
[2018-09-24] MEDS: Multivitamin Tab PO SCH (12:30)
--- NOTE | 2018-09-24 12:55 | Internal Medicine Prog Note ---
Internal Medicine Subjective - Subjective Patient seen and examined:: with staff, chart reviewed Patient is:: asleep, non-verbal, non-interactive, eyes closed, in bed, congested Patient Complaints of:: congestion Per staff patient has:: no adverse event, no episodes of fall, confused Internal Medicine Objective - Results Result Diagrams: 09/24/18 06:00 09/24/18 06:00 Recent Labs: Laboratory Last Values WBC 5.7 Th/cmm (4.8-10.8) 09/24/18 06:00 RBC 3.84 Mil/cmm (3.80-5.20) 09/24/18 06:00 Hgb 12.2 gm/dL (12-16) 09/24/18 06:00 Hct 37.0 % (41.0-60) L 09/24/18 06:00 MCV 96.2 fl (81-100) 09/24/18 06:00 MCH 31.9 pg (27.0-31.0) H 09/24/18 06:00 MCHC Differential 33.1 pg (28.0-36.0) 09/24/18 06:00 RDW 11.9 % (11.5-20.0) 09/24/18 06:00 Plt Count 143 Th/cmm (150-400) L 09/24/18 06:00 MPV 8.1 fl 09/24/18 06:00 Neutrophils % 58.8 % (40.0-80.0) 09/24/18 06:00 Lymphocytes % 30.0 % (20.0-50.0) 09/24/18 06:00 Monocytes % 8.5 % (2.0-10.0) 09/24/18 06:00 Eosinophils % 2.5 % (0.0-5.0) 09/24/18 06:00 Basophils % 0.2 % (0.0-2.0) 09/24/18 06:00 PT 11.8 SECONDS (9.5-11.5) H 09/24/18 06:00 INR 1.14 (0.5-1.4) 09/24/18 06:00 PTT (Actin FS) 28.3 SECONDS (26.0-38.0) 09/23/18 04:00 Sodium 141 mEq/L (136-145) 09/24/18 06:00 Potassium 2.8 mEq/L (3.5-5.1) L* 09/24/18 06:00 Chloride 109 mEq/L (98-107) H 09/24/18 06:00 Carbon Dioxide 25.1 mEq/L (21.0-31.0) 09/24/18 06:00 Anion Gap 9.7 (7.0-16.0) 09/24/18 06:00 BUN 18 mg/dL (7-25) 09/24/18 06:00 Creatinine 0.5 mg/dL (0.6-1.2) L 09/24/18 06:00 Est GFR ( Amer) TNP 09/24/18 06:00 Est GFR (Non-Af Amer) TNP 09/24/18 06:00 BUN/Creatinine Ratio 36.0 09/24/18 06:00 Glucose 102 mg/dL (70-105) 09/24/18 06:00 POC Glucose 96 MG/DL (70 - 105) 09/24/18 07:01 Calcium 7.9 mg/dL (8.6-10.3) L 09/24/18 06:00 Phosphorus 2.5 mg/dL (2.5-5.0) 09/23/18 04:00 Magnesium 2.3 mg/dL (1.9-2.7) 09/24/18 06:00 Total Bilirubin 0.5 mg/dL (0.3-1.0) 09/24/18 06:00 AST 18 U/L (13-39) 09/24/18 06:00 ALT 6 U/L (7-52) L 09/24/18 06:00 Alkaline Phosphatase 38 U/L (34-104) 09/24/18 06:00 Troponin I 0.01 ng/mL (0.01-0.05) 09/22/18 22:03 B-Natriuretic Peptide 52.0 pg/mL (5.0-100.0) 09/24/18 06:00 Total Protein 5.6 gm/dL (6.0-8.3) L 09/24/18 06:00 Albumin 2.8 gm/dL (3.7-5.3) L 09/24/18 06:00 Globulin 2.8 gm/dL 09/24/18 06:00 Albumin/Globulin Ratio 1.0 (1.0-1.8) 09/24/18 06:00 TSH 0.42 uIU/ml (0.34-5.60) 09/22/18 22:03 Urine Source CATH 09/22/18 22:51 Urine Color YELLOW 09/22/18 22:51 Urine Clarity HAZY (CLEAR) 09/22/18 22:51 Urine pH 5.5 (4.6 - 8.0) 09/22/18 22:51 Ur Specific [place] >= 1.030 (1.005-1.030) 09/22/18 22:51 Urine Protein TRACE mg/dL (NEGATIVE) 09/22/18 22:51 Urine Glucose (UA) NEGATIVE mg/dL (NEGATIVE) 09/22/18 22:51 Urine Ketones 15 mg/dL (NEGATIVE) H 09/22/18 22:51 Urine Blood MODERATE (NEGATIVE) H 09/22/18 22:51 Urine Nitrate NEGATIVE (NEGATIVE) 09/22/18 22:51 Urine Bilirubin NEGATIVE (NEGATIVE) 09/22/18 22:51 Urine Urobilinogen 0.2 E.U./dL (0.2 - 1.0) 09/22/18 22:51 Ur Leukocyte Esterase NEGATIVE (NEGATIVE) 09/22/18 22:51 Urine RBC 10-25 /hpf (0-5) H 09/22/18 22:51 Urine WBC 2-5 /hpf (0-5) 09/22/18 22:51 Ur Epithelial Cells MODERATE /lpf (FEW) 09/22/18 22:51 Urine Bacteria FEW /hpf (NONE SEEN) 09/22/18 22:51 - Physical Exam Vitals and I&O: Vital Signs Temp 96.8 F 09/24/18 12:01 Pulse 105 09/24/18 12:01 Resp 18 09/24/18 12:01 BP 101/77 09/24/18 12:01 Pulse Ox 98 09/24/18 12:01 Intake & Output 09/23/18 09/24/18 09/24/18 18:59 06:59 18:59 Intake Total 540 1245.0 50 Balance 540 1245.0 50 Weight (lbs) 37.648 kg 37.648 kg Intake: Intake, IV Amount 1000.0 50 Dextrose 5% 1,000 ml @ 75 1000.0 mls/hr IV .[id number] [facility] Rx#:[id number] ceFAZolin 1 gm In Sodium 50 Chloride 0.9% 50 ml @ 100 mls/hr IV X1 ONE Rx#: [id number] Oral 0 Tube Feeding 140 245 Other 400 Other: # Voids 2 2 # Bowel Movements 1 1 Stool Characteristics Liquid Soft Brown Weight Source Bedscale Bedscale Active Medications: Current Medications Acetaminophen (Tylenol) 650 mg PO Q4H PRN PRN Reason: Pain Or Fever above 101 Stop: 11/21/18 22:06 Last Admin: 09/23/18 17:08 Dose: 650 mg Albuterol Sulfate (Albuterol 2.5mg/3ml Neb Ud) 2.5 mg HHN Q2HRT PRN PRN Reason: Shortness of Breath or Wheeze Stop: 11/21/18 22:06 Last Admin: 09/23/18 00:12 Dose: 2.5 mg Artificial Tears (Artificial Tears Ophth Soln) 1 drop EACH EYE Q6HR PRN PRN Reason: Dry Eye Stop: 10/23/18 22:05 Last Admin: 09/23/18 10:11 Dose: 1 drop Diltiazem HCl (Cardizem) 10 mg IVP Q4HR PRN PRN Reason: Tachycardia HR Above 120 Stop: 11/22/18 00:00 Last Admin: 09/23/18 10:40 Dose: 10 mg Diltiazem HCl (Cardizem) 30 mg PO Q8HR [facility] Stop: 11/23/18 12:59 Docusate Sodium (Colace) 100 mg PO BID [facility] Stop: 11/22/18 08:59 Last Admin: 09/24/18 09:53 Dose: Not Given Donepezil HCl (Aricept) 5 mg PO HS [facility] Stop: 11/22/18 20:59 Last Admin: 09/23/18 21:23 Dose: 5 mg Guaifenesin (Robitussin) 200 mg PO Q6HR PRN PRN Reason: Cough Stop: 11/21/18 22:05 Levofloxacin (Levaquin Pb) 500 mg in 100 mls @ 100 mls/hr IV Q24HR [facility] Stop: 11/22/18 14:59 Last Admin: 09/23/18 17:02 Dose: 100 mls/hr Potassium Chloride (Potassium Chloride) 20 meq in 100 mls @ 50 mls/hr IV Q2H [facility] Stop: 09/24/18 15:14 Last Admin: 09/24/18 11:58 Dose: 50 mls/hr Dextrose (D5w) 1,000 mls @ 50 mls/hr IV .Q20H [facility] Stop: 11/23/18 12:59 Ipratropium [place] (Atrovent Neb 0.5mg/2.5ml) 0.5 mg HHN Q2HRT PRN PRN Reason: Shortness of Breath or Wheeze Stop: 11/21/18 22:06 Magnesium Hydroxide (Milk Of Magnesia) 30 ml PO HS PRN PRN Reason: Constipation Stop: 11/21/18 22:05 Metoprolol Succinate (Toprol Xl) 25 mg PO BID [facility] Stop: 11/22/18 08:59 Last Admin: 09/24/18 12:29 Dose: Not Given Multivitamins/Vitamin C (Theragran) 1 tab PO DAILY [facility] Stop: 11/22/18 08:59 Last Admin: 09/24/18 12:30 Dose: Not Given Ondansetron HCl (Zofran) 4 mg IV Q8H PRN PRN Reason: Nausea / Vomiting Stop: 11/21/18 22:06 General: lethargic, bilateral temporal wasting, cachectic, appears older HEENT: NC/AT, PERRLA Neck: Supple, No JVD, No LAD, deformity Lungs: congested, rales, ronchi Cardiovascular: RRR, Normal S1, Normal S2, with murmur Abdomen: soft, non-tender, thin, +GT, positive bowel sound Extremities: excoriation, contracture Neurological: no change Internal Medicine Assmt/Plan - Assessment Assessment: ASSESSMENT: Failure to thrive, dysphagia, atrial fibrillation with rapid ventricular response, hypertension, hyperlipidemia, hypernatremia secondary to acute dehydration, acute urinary tract infection, moderate protein calorie malnutrition. - Plan Plan: PLAN: The patient to be admitted to the tele unit. We will give IV fluids for hydration. NG tube for nutritional support. We will get GI consultation for possible PEG. done Get Cardiology consultation as well. We will get followup labs. We will send urine for culture. We will give the patient empiric IV antibiotics. We will continue to monitor this patient. Nutritional Asmnt/Malnutr-PDOC - Dietary Evaluation Malnutrition Findings (Please click <Entered> for more info): Nutritional Asmnt/Malnutrition Start: 09/23/18 11: 10 Text: Status: Complete Freq: Protocol: Document 09/23/18 14:24 CHARANJITAYSE (Rec: 09/23/18 14:38 CHARANJITAYSE [email or web address]) Nutritional Asmnt/Malnutrition Patient General Information Nutritional Screening High Risk Consult Diagnosis FTT, afib w/RVR Pertinent Medical Hx/Surgical Hx HTN, dyslipidemia, dysphagia, afib Subjective Information Consult received for GT feeding. Pt had NG tube inserted today and GI doctor ordered to start TF. Current Diet Order/ Nutrition Support NPO Pertinent Medications D5W, colace, lasix, levaquin, theragran Pertinent Labs 09/23 Na 152, Cl 117, Glucose 131, Ca 8.4, Alb 3.3 09/22 Na 148, Cl 113, Glucose 109, Alb 3.4 Nutritional Hx/Data Height 1.52 m Height (Calculated Centimeters) 152.4 Current Weight (lbs) 37.648 kg Weight (Calculated Kilograms) 37.6 Weight (Calculated Grams) 98366.2 [place] Body Weight 100 Body Mass Index (BMI) 16.2 Weight Status Underweight GI Symptoms GI Symptoms None Last BM none Difficult in: None Skin Integrity/Comment: open wound to coccyx and right buttock Estimated Nutritional Goals Calories/Kcals/Kg 30-35 based on IBW Kcals Calculated 2144-0589 Protein g/k.2-1.4 Protein Calculated 54-63 Fluid: ml 1350-1575ml (1ml/kcal) Nutritional Problem 1. Problem Problem increased nutrition needs Etiology increased metabolic demand for wound healing and underweight Signs/Symptoms: open wound, BMI 16.2 Intervention/Recommendation Comments 1. Recommend to initate TF with Jevity 1.2 at 20ml/hr contiuous, increased by 10ml/ hr q6hr to achieve goal rate of 45ml/hr continuous. It provides 1296kcal, 60g protein , 871ml free water, meeting 100% of nutritional needs. JIHAN Perez notified. 2. Add Amor BID via NG tube for wound healing 3. Monitor TF rate, tolerance, wt, skin integrity and labs 4. F/U as high risk in 2-3 days Expected Outcomes/Goals Expected Outcomes/Goals 1. Pt to meet at least 90% of nutritional needs via nutrition support with tolerance 2. Wt stability, skin integrity to improve, labs to approach WNL.
[2018-09-24] MEDS ORDERED: Dextrose 5% 1,000 ML IV SCH (13:00)
[2018-09-24] MEDS: Levofloxacin 500mg/100mL 500 MG/100 ML BAG IV SCH (15:51)
--- NOTE | 2018-09-24 17:15 | Operative Report ---
DATE OF SURGERY: 09/24/2018 PROCEDURE PERFORMED: EGD with G-tube placement. ENDOSCOPIST: Baldve Haro MD PREOPERATIVE DIAGNOSES: Anorexia, failure to thrive, dysphagia. POSTOPERATIVE DIAGNOSES: G-tube placement. INDICATION: The patient is a 77-year-old female who has stopped eating and drinking volitionally for the past several weeks and has become dehydrated. She has failed a swallowing evaluation and thus GI is asked for G-tube placement. Her family has been consented for this and they agree with this procedure. CONSENT: Informed consent was obtained from the patient's healthcare proxy. DESCRIPTION OF PROCEDURE: Risks and benefits of the procedure were discussed including but not limited to infection, bleeding, perforation, need for surgery, cardiopulmonary complications, missed pathology, G-tube site related bleeding, G-tube insertion related bowel perforation and . The patient's healthcare proxy indicated they understood these risks, wished to go forward with the procedure and signed the consent form. ANESTHESIA: The procedure was done in the operating room under the care of anesthesiologist, Dr. Olsen providing propofol for anesthesia. PROCEDURE IN DETAIL: With the patient in the supine position, a mouthpiece was inserted and secured. Anesthesia was administered by Dr. Olsen. Next, a gastroscope was introduced into the mouth and guided under direct visualization into the esophagus, stomach and duodenum. The examined portions of the esophagus, stomach and duodenum were unremarkable. There was no esophagitis, gastric ulcer or mass or duodenal lesion. Next, an appropriate location for the G-tube was found along the lesser curve of the stomach. This was confirmed by transillumination as well as single poke method from the skin producing good indentation on the gastric mucosa. Next, a 22-gauge needle was used to subcutaneously inject lidocaine into this area. The same needle was used to puncture the stomach under direct visualization from the scope confirming the appropriate location. Next, a small incision was made with the scalpel along the skin and a trocar was placed through the incision under direct visualization from the scope into the stomach. The trocar was secured in place using a snare device and the needle was removed and a guidewire was inserted through the trocar and grasped with the same snare device. The guidewire was pulled out through the mouth along with the scope and a new 20-Sami G-tube was affixed securely to the guidewire. Using standard pull technique, the guidewire and new G-tube were pulled back down through the patient's mouth, through the esophagus and snugged to the abdominal wall. At this point, antibiotic ointment was applied to the skin itself and the external bumper was put in the correct location along the tube. The scope was reintroduced into the patient's mouth and guided under direct visualization into the esophagus and stomach and confirmed the appropriate location of the internal bumper. At this point, the procedure was complete and the instrumentation was withdrawn. Of note, the patient did receive 1 gram of Ancef prior to the procedure start. RECOMMENDATIONS: 1. The new G-tube can be used immediately for medications and water flushes. 2. In 8 hours, tube feeds can be started at 10 mL an hour and increase by 10 mL per hour until the goal rate is reached. 3. Flush the G-tube with 100 mL of water every 6 hours. 4. Hold for any gastric residual greater than 100 mL and check every 6 hours. 5. Abdominal binder. Thank you for allowing me to participate in this patient's care. Please call with any further questions. JOB# [id number]
[2018-09-25] MEDS: Diltiazem 30 mg Tab PO SCH ×2 (05:00→12:10)
[2018-09-25 05:54] LABS: ANION GAP 10.3 (7.0-16.0); BUN - UREA NITROGEN 8 mg/dL (7-25); CALCIUM SERUM 8.2 mg/dL (8.6-10.3); CARBON DIOXIDE 24.2 mEq/L (21.0-31.0); CHLORIDE 106 mEq/L (98-107); CREATININE - SERUM 0.5 mg/dL (0.6-1.2); GLUCOSE 123 mg/dL (70-105); MAGNESIUM 2.2 mg/dL (1.9-2.7); POTASSIUM SERUM 3.5 mEq/L (3.5-5.1); SODIUM SERUM 137 mEq/L (136-145)
--- NOTE | 2018-09-25 07:00 | GI Progress Note ---
Subjective - Review of Systems Service Date: 09/25/18 Subjective: As per staffing consultant, tolerated G tube feeding overnight. Not currently running. Objective - Results Result Diagrams: 09/24/18 06:00 09/25/18 04:45 Recent Labs: Laboratory Last Values WBC 5.7 Th/cmm (4.8-10.8) 09/24/18 06:00 RBC 3.84 Mil/cmm (3.80-5.20) 09/24/18 06:00 Hgb 12.2 gm/dL (12-16) 09/24/18 06:00 Hct 37.0 % (41.0-60) L 09/24/18 06:00 MCV 96.2 fl (81-100) 09/24/18 06:00 MCH 31.9 pg (27.0-31.0) H 09/24/18 06:00 MCHC Differential 33.1 pg (28.0-36.0) 09/24/18 06:00 RDW 11.9 % (11.5-20.0) 09/24/18 06:00 Plt Count 143 Th/cmm (150-400) L 09/24/18 06:00 MPV 8.1 fl 09/24/18 06:00 Neutrophils % 58.8 % (40.0-80.0) 09/24/18 06:00 Lymphocytes % 30.0 % (20.0-50.0) 09/24/18 06:00 Monocytes % 8.5 % (2.0-10.0) 09/24/18 06:00 Eosinophils % 2.5 % (0.0-5.0) 09/24/18 06:00 Basophils % 0.2 % (0.0-2.0) 09/24/18 06:00 PT 11.8 SECONDS (9.5-11.5) H 09/24/18 06:00 INR 1.14 (0.5-1.4) 09/24/18 06:00 PTT (Actin FS) 28.3 SECONDS (26.0-38.0) 09/23/18 04:00 Sodium 137 mEq/L (136-145) 09/25/18 04:45 Potassium 3.5 mEq/L (3.5-5.1) 09/25/18 04:45 Chloride 106 mEq/L (98-107) 09/25/18 04:45 Carbon Dioxide 24.2 mEq/L (21.0-31.0) 09/25/18 04:45 Anion Gap 10.3 (7.0-16.0) 09/25/18 04:45 BUN 8 mg/dL (7-25) 09/25/18 04:45 Creatinine 0.5 mg/dL (0.6-1.2) L 09/25/18 04:45 Est GFR ( Amer) TNP 09/25/18 04:45 Est GFR (Non-Af Amer) TNP 09/25/18 04:45 BUN/Creatinine Ratio 16.0 09/25/18 04:45 Glucose 123 mg/dL (70-105) H 09/25/18 04:45 POC Glucose 96 MG/DL (70 - 105) 09/24/18 07:01 Calcium 8.2 mg/dL (8.6-10.3) L 09/25/18 04:45 Phosphorus 2.5 mg/dL (2.5-5.0) 09/23/18 04:00 Magnesium 2.2 mg/dL (1.9-2.7) 09/25/18 04:45 Total Bilirubin 0.5 mg/dL (0.3-1.0) 09/24/18 06:00 AST 18 U/L (13-39) 09/24/18 06:00 ALT 6 U/L (7-52) L 09/24/18 06:00 Alkaline Phosphatase 38 U/L (34-104) 09/24/18 06:00 Troponin I 0.01 ng/mL (0.01-0.05) 09/22/18 22:03 B-Natriuretic Peptide 52.0 pg/mL (5.0-100.0) 09/24/18 06:00 Total Protein 5.6 gm/dL (6.0-8.3) L 09/24/18 06:00 Albumin 2.8 gm/dL (3.7-5.3) L 09/24/18 06:00 Globulin 2.8 gm/dL 09/24/18 06:00 Albumin/Globulin Ratio 1.0 (1.0-1.8) 09/24/18 06:00 TSH 0.42 uIU/ml (0.34-5.60) 09/22/18 22:03 Urine Source CATH 09/22/18 22:51 Urine Color YELLOW 09/22/18 22:51 Urine Clarity HAZY (CLEAR) 09/22/18 22:51 Urine pH 5.5 (4.6 - 8.0) 09/22/18 22:51 Ur Specific [place] >= 1.030 (1.005-1.030) 09/22/18 22:51 Urine Protein TRACE mg/dL (NEGATIVE) 09/22/18 22:51 Urine Glucose (UA) NEGATIVE mg/dL (NEGATIVE) 09/22/18 22:51 Urine Ketones 15 mg/dL (NEGATIVE) H 09/22/18 22:51 Urine Blood MODERATE (NEGATIVE) H 09/22/18 22:51 Urine Nitrate NEGATIVE (NEGATIVE) 09/22/18 22:51 Urine Bilirubin NEGATIVE (NEGATIVE) 09/22/18 22:51 Urine Urobilinogen 0.2 E.U./dL (0.2 - 1.0) 09/22/18 22:51 Ur Leukocyte Esterase NEGATIVE (NEGATIVE) 09/22/18 22:51 Urine RBC 10-25 /hpf (0-5) H 09/22/18 22:51 Urine WBC 2-5 /hpf (0-5) 09/22/18 22:51 Ur Epithelial Cells MODERATE /lpf (FEW) 09/22/18 22:51 Urine Bacteria FEW /hpf (NONE SEEN) 09/22/18 22:51 - Physical Exam Vitals and I&O: Vital Signs Temp 98.7 F 09/25/18 04:00 Pulse 80 09/25/18 05:00 Resp 18 09/25/18 04:00 BP 127/67 09/25/18 04:00 Pulse Ox 97 09/25/18 04:00 Intake & Output 09/24/18 09/24/18 09/25/18 06:59 18:59 06:59 Intake Total 1245.0 133.333 400 Balance 1245.0 133.333 400 Weight (lbs) 37.648 kg 37.648 kg Intake: Intake, IV Amount 1000.0 133.333 Dextrose 5% 1,000 ml @ 75 1000.0 mls/hr IV .[id number] [facility] Rx#:[id number] KCL 20mEq/100mL Premix 20 83.333 meq In 100 ml @ 50 mls/ hr IV Q2H [facility] Rx#: [id number] ceFAZolin 1 gm In Sodium 50 Chloride 0.9% 50 ml @ 100 mls/hr IV X1 ONE Rx#: [id number] Tube Feeding 245 400 Other: # Voids 2 2 # Bowel Movements 1 1 Stool Characteristics Soft Weight Source Bedscale Bedscale Active Medications: Current Medications Acetaminophen (Tylenol) 650 mg PO Q4H PRN PRN Reason: Pain Or Fever above 101 Stop: 11/21/18 22:06 Last Admin: 09/23/18 17:08 Dose: 650 mg Albuterol Sulfate (Albuterol 2.5mg/3ml Neb Ud) 2.5 mg HHN Q2HRT PRN PRN Reason: Shortness of Breath or Wheeze Stop: 11/21/18 22:06 Last Admin: 09/23/18 00:12 Dose: 2.5 mg Artificial Tears (Artificial Tears Ophth Soln) 1 drop EACH EYE Q6HR PRN PRN Reason: Dry Eye Stop: 10/23/18 22:05 Last Admin: 09/23/18 10:11 Dose: 1 drop Diltiazem HCl (Cardizem) 10 mg IVP Q4HR PRN PRN Reason: Tachycardia HR Above 120 Stop: 11/22/18 00:00 Last Admin: 09/23/18 10:40 Dose: 10 mg Diltiazem HCl (Cardizem) 30 mg PO Q8HR [facility] Stop: 11/23/18 12:59 Last Admin: 09/25/18 05:00 Dose: 30 mg Docusate Sodium (Colace) 100 mg PO BID [facility] Stop: 11/22/18 08:59 Last Admin: 09/24/18 17:49 Dose: 100 mg Donepezil HCl (Aricept) 5 mg PO HS [facility] Stop: 11/22/18 20:59 Last Admin: 09/24/18 21:03 Dose: 5 mg Guaifenesin (Robitussin) 200 mg PO Q6HR PRN PRN Reason: Cough Stop: 11/21/18 22:05 Levofloxacin (Levaquin Pb) 500 mg in 100 mls @ 100 mls/hr IV Q24HR [facility] Stop: 11/22/18 14:59 Last Admin: 09/24/18 15:51 Dose: 100 mls/hr Dextrose (D5w) 1,000 mls @ 50 mls/hr IV .Q20H [facility] Stop: 11/23/18 12:59 Ipratropium [place] (Atrovent Neb 0.5mg/2.5ml) 0.5 mg HHN Q2HRT PRN PRN Reason: Shortness of Breath or Wheeze Stop: 11/21/18 22:06 Magnesium Hydroxide (Milk Of Magnesia) 30 ml PO HS PRN PRN Reason: Constipation Stop: 11/21/18 22:05 Metoprolol Succinate (Toprol Xl) 25 mg PO BID [facility] Stop: 11/22/18 08:59 Last Admin: 09/24/18 17:47 Dose: 25 mg Multivitamins/Vitamin C (Theragran) 1 tab PO DAILY [facility] Stop: 11/22/18 08:59 Last Admin: 09/24/18 12:30 Dose: Not Given Mupirocin (Bactroban Oint) 1 appl NS BID [facility] Stop: 09/29/18 09:01 Ondansetron HCl (Zofran) 4 mg IV Q8H PRN PRN Reason: Nausea / Vomiting Stop: 11/21/18 22:06 General: Alert, Mild distress HEENT: Mucous membr. moist/pink Neck: Supple, JVD (flat) Cardiovascular: Systolic murmurs, Other (atrial fibrillation) Abdomen: Bowel sounds, Soft, Other, no Tender, no Hepatomegaly, no Distended, no Rebound, no Mass (g tube c/d/i) Neurological: Normal speech, Normal tone, Cranial nerves 3-12 NL, Reflexes 2+ - Procedures Procedures: Procedures Procedure Code Date INSERTION OF FEEDING DEVICE INTO STOMACH, OPEN APPROACH [id number] 09/22/18 Assessment/Plan - Assessment Assessment: # Anorexia # Failure to thrive # Dysphagia G tube placed on 09/24/18, tolerating tube feeding overnight. Plan: - cont tube feeding at goal rate - hold for gastric residual > 100cc - flush g tube with 100cc water every 6 hrs - abd binder
[2018-09-25 07:46] LABS: % BASOPHILS 0.4 % (0.0-2.0); % EOSINOPHILS 1.1 % (0.0-5.0); % LYMPHOCYTES 27.6 % (20.0-50.0); % MONOCYTES 7.3 % (2.0-10.0); % NEUTROPHILS 63.6 % (40.0-80.0); EOSINOPHILE ABSOLUTE 0.1 Th/cmm (0.1-0.4); HEMATOCRIT 41.1 % (41.0-60); HEMOGLOBIN 13.4 gm/dL (12-16); LYMPHOCYTE ABSOLUTE 1.7 Th/cmm (1.5-3.0); MEAN CELL VOLUME 95.8 fl (81-100); MEAN CORPUSCULAR HEMOGLOBIN 31.3 pg (27.0-31.0); MEAN CORPUSCULAR HGB CONC 32.7 pg (28.0-36.0); MEAN PLATELET VOLUME 8.9 fl; MONOCYTE ABSOLUTE 0.5 Th/cmm (0.3-1.0); NEUTROPHILE ABSOLUTE 3.9 Th/cmm (1.8-8.0); PLATELET COUNT 177 Th/cmm (150-400); RED BLOOD COUNT 4.29 Mil/cmm (3.80-5.20); RED CELL DISTRIBUTION WIDTH 11.7 % (11.5-20.0); WHITE BLOOD COUNT 6.2 Th/cmm (4.8-10.8)
[2018-09-25] MEDS: Multivitamin Tab PO SCH (08:56)
--- NOTE | 2018-09-25 13:42 | General Progress Note ---
Subjective - Review of Systems Service Date: 09/25/18 Subjective: Patient has slight shortness of breath no palpitations ejection transferred to PHILLY Patient is having difficulty in tolerating G-tube feeding Objective - Results Result Diagrams: 09/25/18 07:30 09/25/18 04:45 Recent Labs: Laboratory Last Values WBC 6.2 Th/cmm (4.8-10.8) 09/25/18 07:30 RBC 4.29 Mil/cmm (3.80-5.20) 09/25/18 07:30 Hgb 13.4 gm/dL (12-16) 09/25/18 07:30 Hct 41.1 % (41.0-60) 09/25/18 07:30 MCV 95.8 fl (81-100) 09/25/18 07:30 MCH 31.3 pg (27.0-31.0) H 09/25/18 07:30 MCHC Differential 32.7 pg (28.0-36.0) 09/25/18 07:30 RDW 11.7 % (11.5-20.0) 09/25/18 07:30 Plt Count 177 Th/cmm (150-400) 09/25/18 07:30 MPV 8.9 fl 09/25/18 07:30 Neutrophils % 63.6 % (40.0-80.0) 09/25/18 07:30 Lymphocytes % 27.6 % (20.0-50.0) 09/25/18 07:30 Monocytes % 7.3 % (2.0-10.0) 09/25/18 07:30 Eosinophils % 1.1 % (0.0-5.0) 09/25/18 07:30 Basophils % 0.4 % (0.0-2.0) 09/25/18 07:30 PT 11.8 SECONDS (9.5-11.5) H 09/24/18 06:00 INR 1.14 (0.5-1.4) 09/24/18 06:00 PTT (Actin FS) 28.3 SECONDS (26.0-38.0) 09/23/18 04:00 Sodium 137 mEq/L (136-145) 09/25/18 04:45 Potassium 3.5 mEq/L (3.5-5.1) 09/25/18 04:45 Chloride 106 mEq/L (98-107) 09/25/18 04:45 Carbon Dioxide 24.2 mEq/L (21.0-31.0) 09/25/18 04:45 Anion Gap 10.3 (7.0-16.0) 09/25/18 04:45 BUN 8 mg/dL (7-25) 09/25/18 04:45 Creatinine 0.5 mg/dL (0.6-1.2) L 09/25/18 04:45 Est GFR ( Amer) TNP 09/25/18 04:45 Est GFR (Non-Af Amer) TNP 09/25/18 04:45 BUN/Creatinine Ratio 16.0 09/25/18 04:45 Glucose 123 mg/dL (70-105) H 09/25/18 04:45 POC Glucose 96 MG/DL (70 - 105) 09/24/18 07:01 Calcium 8.2 mg/dL (8.6-10.3) L 09/25/18 04:45 Phosphorus 2.5 mg/dL (2.5-5.0) 09/23/18 04:00 Magnesium 2.2 mg/dL (1.9-2.7) 09/25/18 04:45 Total Bilirubin 0.5 mg/dL (0.3-1.0) 09/24/18 06:00 AST 18 U/L (13-39) 09/24/18 06:00 ALT 6 U/L (7-52) L 09/24/18 06:00 Alkaline Phosphatase 38 U/L (34-104) 09/24/18 06:00 Ammonia 71 umol/L (16-53) H 09/25/18 04:45 Troponin I 0.01 ng/mL (0.01-0.05) 09/22/18 22:03 B-Natriuretic Peptide 154.0 pg/mL (5.0-100.0) H 09/25/18 04:45 Total Protein 5.6 gm/dL (6.0-8.3) L 09/24/18 06:00 Albumin 2.8 gm/dL (3.7-5.3) L 09/24/18 06:00 Globulin 2.8 gm/dL 09/24/18 06:00 Albumin/Globulin Ratio 1.0 (1.0-1.8) 09/24/18 06:00 TSH 0.42 uIU/ml (0.34-5.60) 09/22/18 22:03 Urine Source CATH 09/22/18 22:51 Urine Color YELLOW 09/22/18 22:51 Urine Clarity HAZY (CLEAR) 09/22/18 22:51 Urine pH 5.5 (4.6 - 8.0) 09/22/18 22:51 Ur Specific [place] >= 1.030 (1.005-1.030) 09/22/18 22:51 Urine Protein TRACE mg/dL (NEGATIVE) 09/22/18 22:51 Urine Glucose (UA) NEGATIVE mg/dL (NEGATIVE) 09/22/18 22:51 Urine Ketones 15 mg/dL (NEGATIVE) H 09/22/18 22:51 Urine Blood MODERATE (NEGATIVE) H 09/22/18 22:51 Urine Nitrate NEGATIVE (NEGATIVE) 09/22/18 22:51 Urine Bilirubin NEGATIVE (NEGATIVE) 09/22/18 22:51 Urine Urobilinogen 0.2 E.U./dL (0.2 - 1.0) 09/22/18 22:51 Ur Leukocyte Esterase NEGATIVE (NEGATIVE) 09/22/18 22:51 Urine RBC 10-25 /hpf (0-5) H 09/22/18 22:51 Urine WBC 2-5 /hpf (0-5) 09/22/18 22:51 Ur Epithelial Cells MODERATE /lpf (FEW) 09/22/18 22:51 Urine Bacteria FEW /hpf (NONE SEEN) 09/22/18 22:51 - Physical Exam Vitals and I&O: Vital Signs Temp 96.8 F 09/25/18 11:31 Pulse 96 09/25/18 12:10 Resp 17 09/25/18 11:31 BP 127/70 09/25/18 11:31 Pulse Ox 98 09/25/18 11:31 Intake & Output 09/24/18 09/25/18 09/25/18 18:59 06:59 18:59 Intake Total 133.333 400 Balance 133.333 400 Weight (lbs) 37.648 kg Intake: Intake, IV Amount 133.333 KCL 20mEq/100mL Premix 20 83.333 meq In 100 ml @ 50 mls/ hr IV Q2H [facility] Rx#: [id number] ceFAZolin 1 gm In Sodium 50 Chloride 0.9% 50 ml @ 100 mls/hr IV X1 [facility] Rx#: [id number] Tube Feeding 400 Other: # Voids 2 # Bowel Movements 1 Stool Characteristics Soft Weight Source Bedscale Active Medications: Current Medications Acetaminophen (Tylenol) 650 mg PO Q4H PRN PRN Reason: Pain Or Fever above 101 Stop: 11/21/18 22:06 Last Admin: 09/23/18 17:08 Dose: 650 mg Albuterol Sulfate (Albuterol 2.5mg/3ml Neb Ud) 2.5 mg HHN Q2HRT PRN PRN Reason: Shortness of Breath or Wheeze Stop: 11/21/18 22:06 Last Admin: 09/23/18 00:12 Dose: 2.5 mg Artificial Tears (Artificial Tears Ophth Soln) 1 drop EACH EYE Q6HR PRN PRN Reason: Dry Eye Stop: 10/23/18 22:05 Last Admin: 09/23/18 10:11 Dose: 1 drop Diltiazem HCl (Cardizem) 10 mg IVP Q4HR PRN PRN Reason: Tachycardia HR Above 120 Stop: 11/22/18 00:00 Last Admin: 09/23/18 10:40 Dose: 10 mg Diltiazem HCl (Cardizem) 30 mg PO Q8HR [facility] Stop: 11/23/18 12:59 Last Admin: 09/25/18 12:10 Dose: 30 mg Docusate Sodium (Colace) 100 mg PO BID [facility] Stop: 11/22/18 08:59 Last Admin: 09/25/18 08:56 Dose: 100 mg Donepezil HCl (Aricept) 5 mg PO HS [facility] Stop: 11/22/18 20:59 Last Admin: 09/24/18 21:03 Dose: 5 mg Gabapentin (Neurontin) 300 mg PO BID [facility] Stop: 11/24/18 16:59 Guaifenesin (Robitussin) 200 mg PO Q6HR PRN PRN Reason: Cough Stop: 11/21/18 22:05 Ipratropium [place] (Atrovent Neb 0.5mg/2.5ml) 0.5 mg HHN Q2HRT PRN PRN Reason: Shortness of Breath or Wheeze Stop: 11/21/18 22:06 Magnesium Hydroxide (Milk Of Magnesia) 30 ml PO HS PRN PRN Reason: Constipation Stop: 11/21/18 22:05 Metoprolol Succinate (Toprol Xl) 25 mg PO BID [facility] Stop: 11/22/18 08:59 Last Admin: 09/25/18 08:57 Dose: 25 mg Multivitamins/Vitamin C (Theragran) 1 tab PO DAILY [facility] Stop: 11/22/18 08:59 Last Admin: 09/25/18 08:56 Dose: 1 tab Mupirocin (Bactroban Oint) 1 appl NS BID [facility] Stop: 09/29/18 09:01 Last Admin: 09/25/18 08:56 Dose: 1 appl Ondansetron HCl (Zofran) 4 mg IV Q8H PRN PRN Reason: Nausea / Vomiting Stop: 11/21/18 22:06 Rivaroxaban (Xarelto) 10 mg PO DAILY [facility] Stop: 11/25/18 08:59 General: Alert, Mild distress HEENT: Mucous membr. moist/pink Neck: Supple, JVD (flat) Cardiovascular: Systolic murmurs, Other (atrial fibrillation) Abdomen: Bowel sounds, Soft, Other, no Tender, no Hepatomegaly, no Distended, no Rebound, no Mass (g tube c/d/i) Neurological: Normal speech, Normal tone, Cranial nerves 3-12 NL, Reflexes 2+ - Procedures Procedures: Procedures Procedure Code Date INSERTION OF FEEDING DEVICE INTO STOMACH, OPEN APPROACH [id number] 09/22/18 Assessment/Plan - Assessment Assessment: Atrial fibrillation with rapid ventricular response Dysphagia protein calorie malnutrition Hypertension Hyperlipidemia Osteoporosis GT (insertion - Plan Plan: Continue present management control atrial fibrillation hypertension and nutrition Patient started medication through the G-tube Will hold G-tube feedings due to high residual Nutritional Asmnt/Malnutr-PDOC - Dietary Evaluation Malnutrition Findings (Please click <Entered> for more info): Nutritional Asmnt/Malnutrition Start: 09/23/18 11: 10 Text: Status: Complete Freq: Protocol: Document 09/23/18 14:24 LCHENG (Rec: 09/23/18 14:38 [id number]) Nutritional Asmnt/Malnutrition Patient General Information Nutritional Screening High Risk Consult Diagnosis FTT, afib w/RVR Pertinent Medical Hx/Surgical Hx HTN, dyslipidemia, dysphagia, afib Subjective Information Consult received for GT feeding. Pt had NG tube inserted today and GI doctor ordered to start TF. Current Diet Order/ Nutrition Support NPO Pertinent Medications D5W, colace, lasix, levaquin, theragran Pertinent Labs 09/23 Na 152, Cl 117, Glucose 131, Ca 8.4, Alb 3.3 09/22 Na 148, Cl 113, Glucose 109, Alb 3.4 Nutritional Hx/Data Height 1.52 m Height (Calculated Centimeters) 152.4 Current Weight (lbs) 37.648 kg Weight (Calculated Kilograms) 37.6 Weight (Calculated Grams) 54977.2 [place] Body Weight 100 Body Mass Index (BMI) 16.2 Weight Status Underweight GI Symptoms GI Symptoms None Last BM none Difficult in: None Skin Integrity/Comment: open wound to coccyx and right buttock Estimated Nutritional Goals Calories/Kcals/Kg 30-35 based on IBW Kcals Calculated 9877-2722 Protein g/k.2-1.4 Protein Calculated 54-63 Fluid: ml 1350-1575ml (1ml/kcal) Nutritional Problem 1. Problem Problem increased nutrition needs Etiology increased metabolic demand for wound healing and underweight Signs/Symptoms: open wound, BMI 16.2 Intervention/Recommendation Comments 1. Recommend to initate TF with Jevity 1.2 at 20ml/hr contiuous, increased by 10ml/ hr q6hr to achieve goal rate of 45ml/hr continuous. It provides 1296kcal, 60g protein , 871ml free water, meeting 100% of nutritional needs. JIHAN Perez notified. 2. Add Amor BID via NG tube for wound healing 3. Monitor TF rate, tolerance, wt, skin integrity and labs 4. F/U as high risk in 2-3 days Expected Outcomes/Goals Expected Outcomes/Goals 1. Pt to meet at least 90% of nutritional needs via nutrition support with tolerance 2. Wt stability, skin integrity to improve, labs to approach WNL.
--- NOTE | 2018-09-25 14:05 | Cardiology ---
09/23/[address] Jovanni Lawrence. M-MODE ECHOCARDIOGRAM: Mitral valve, anterior leaflet of mitral valve shows normal excursion, EF velocity. Posterior leaflet of the mitral valve shows normal excursion. Left ventricle posterior wall shows increased thickness, normal excursion. Interventricular septum shows increased thickness, normal excursion, hypertrophy of the left ventricle, ejection fraction 63%. Left atrium normal. Aortic root shows normal dimension, normal excursion of aortic leaflets. Short axis view of mitral valve normal. CONCLUSION: Hypertrophy of the left ventricle, ejection fraction 63%. 2D ECHO: Long axis view showed normal sized left ventricle with hypertrophy of the left ventricle. Left atrium normal. Aortic root shows normal dimension, normal excursion of aortic leaflets. Short axis view of mitral valve normal. Short axis view of aortic valve normal. Apical four chamber view shows normal sized left ventricle, left atrium, right ventricle, right atrium, tricuspid and mitral valve. CONCLUSION: Hypertrophy of the left ventricle, ejection fraction 63%. Doppler study shows moderate mitral regurgitation, moderate tricuspid regurgitation, moderate aortic regurgitation, mild pulmonary regurgitation, right ventricular systolic pressure 37 mmHg. JOB# [id number]
--- NOTE | 2018-09-25 18:27 | Discharge Summary ---
DATE OF DISCHARGE: 09/25/2018 CHIEF COMPLAINT: Failure to thrive, unable to swallow. FINAL DIAGNOSES: Dysphagia, status post PEG placement, failure to thrive, atrial fibrillation with a ventricular rate, hypertension, dementia, hyperlipidemia, urinary tract infection and moderate protein calorie malnutrition. HISTORY: This is a 77-year-old [place] female with multiple medical problems, admitted secondary to unable to take medications and not taking medications with p.o. intake. PHYSICAL EXAMINATION: VITAL SIGNS: Blood pressure 127/70, respirations 17, pulse 79, temperature of 96.8. GENERAL: Elderly female, appears her stated age. NECK: Supple. LUNGS: Equal breath sounds, a few rhonchi. HEART: Regular rate and rhythm. Systolic ejection murmur. ABDOMEN: Soft, globular. EXTREMITIES: Positive excoriation. NEUROLOGIC: Limited. HOSPITAL COURSE: She was admitted to medical floor. The patient was seen by Dr. Haro, had a PEG placement. The patient was also seen by Dr. Damion Mittal for Cardiology. DISCHARGE INSTRUCTIONS: The patient to continue on anticoagulation. The patient will be signed out to Dr. Alva ____. JOB# [id number]
== END 2018-09-25 17:30 | DRG 720 ==
LOC: ER 21:15 → ICU 22:33 → TELE 09-23 19:42
PROVIDERS: ADMIT Internal Medicine; ATTEND Internal Medicine
PROC: 0DH63UZ Insertion of Feeding Device into Stomach, Percutaneous Approach (ICD-10-PCS; principal; 2018-09-24)
DX: A41.9 Sepsis, unspecified organism (principal); E87.0 Hyperosmolality and hypernatremia; E44.0 Moderate protein-calorie malnutrition; E86.0 Dehydration; I48.2 Chronic atrial fibrillation; R53.2 Functional quadriplegia; R13.10 Dysphagia, unspecified; E78.5 Hyperlipidemia, unspecified; G30.9 Alzheimer's disease, unspecified; F02.80 Dementia in other diseases classified elsewhere, unspecified severity, without behavioral disturbance, psychotic disturbance, mood disturbance, and anxiety; I10 Essential (primary) hypertension; N39.0 Urinary tract infection, site not specified; R62.7 Adult failure to thrive; Z68.1 Body mass index [BMI] 19.9 or less, adult; M81.0 Age-related osteoporosis without current pathological fracture
CPT/HCPCS: 36415-UA; 71045-TC; 80048-TC; 80053-TC; 81001-TC; 82140-TC; 82948-90; 83735-TC; 83880-TC; 84100-TC; 84443-TC; 84484-TC; 85025-TC; 85610-TC; 85730-TC; 87086-90; 90779; 93005; 94760; 96374; 96379; J0690; J1956; J3480; J7042; J7070; J7613; Z7506; Z7610